=== PATIENT | male | born 1985 | race African-American/Black ===

== ENCOUNTER 2020-06-15 01:17 | Emergency (ER) | payer SELFPAY | END 2020-06-15 03:35 | disposition home or self-care (01) | LOC: ERS 01:17 | DX: S00.03XA Contusion of scalp, initial encounter (principal); F17.210 Nicotine dependence, cigarettes, uncomplicated; W22.8XXA Striking against or struck by other objects, initial encounter | CPT/HCPCS: 70450 ==